=== PATIENT | female | born 1940 | race Caucasian/White ===

== ENCOUNTER 2019-12-18 12:42 | Emergency (ER) | payer MEDICARE ==
[~2019-12-18] VITALS: Ht 162.6 cm; Wt 99.8 kg
--- NOTE | 2019-12-18 14:02 | Emergency Department Note ---
History of Present Illnes History of Present Illness Chief Complaint: General Medicine Complaints History of Present Illness This is a 79 year old female who presents with the itching scalp for 2 weeks. Initially used rubbing alcohol which did not help. Has tried multiple [id number] dictations for lice with no improvement. She states that when she combed her hair with finetooth comb during lice treatment did not see any lice or nits. No similar problems in the past. States that the itching is limited to her scalp and does not have any itching over the rest of the body. Had elevated liver enzymes in past many years ago related to a medicaiton, but has regular lab checked by PCP and liver numbers have always been normal. Denies jaundice. No fever or chills. No nausea vomiting diarrhea. He lives with her daughter, who has had no symptoms. Historian: Patient Arrival Mode: Car Scallop Raker Required: No Onset (how long ago): week(s) Severity: severe Onset quality: gradual Progression: worsening Context: Denies recent illness, Denies trauma/injury Relieving factors: none Exacerbating factors: none Associated symptoms: Denies chest pain, Denies cough, Denies fever/chills, Denies nausea/vomiting Treatments prior to arrival: other (lice treatment) Past Medical/Family History Physician Review I have reviewed the patient's past medical and family history. Any updates have been documented here. Past Medical History Recent Fever: No Clinical Suspicion of Infectio: No New/Unexplained Change in Ment: No Past Medical History: Hypertension Other Medical History: PCP: Juan Chamberlain Past Surgical History: Appendectomy, Hysterectomy, Social History Smoking Cessation: Never Smoker Counseling Performed: No Alcohol Use: None Any Illegal Drug Use: No Other Any Pre-Existing Lines (PICC,: No Review of Systems Review of Systems Constitutional: Denies chills, Denies fever, Denies malaise EENTM: Reports no symptoms Cardiovascular: Denies palpitations, Denies syncope Respiratory: Denies cough, Denies pain with cough Gastrointestinal: Denies abdominal pain, Denies constipation, Denies diarrhea Genitourinary: Reports no symptoms Musculoskeletal: Reports no symptoms Integumentary: Reports as per HPI Neurological: Denies headache Psychological: Reports no symptoms Hematological/Lymphatic: Reports no symptoms Physical Exam Related Data Triage Vital Signs Vital Signs Date Time Temp Pulse Resp B/P (MAP) Pulse Ox O2 Delivery O2 Flow Rate FiO2 12/18/19 12:45 98.6 88 18 171/84 96 Physical Exam CONSTITUTIONAL Constitutional: Present well-developed, Present well-nourished HENT EYES Eyes: Reports PERRL, Reports conjunctivae normal NECK Neck: Present ROM normal PULMONARY Pulmonary: Present effort normal, Present breath sounds normal CARDIOVASCULAR Cardiovascular: Present regular rhythm, Present heart sounds normal, Present capillary refill normal, Present normal rate GASTROINTESTINAL Abdominal: Present soft, Present nontender, Present bowel sounds normal GENITOURINARY SKIN Skin: Present dry (scalp), Present erythema (mild. of scalp), Present other (scaly scalp); Absent jaundiced, Absent lesion MUSCULOSKELETAL Musculoskeletal: Present ROM normal, Present other (normal gait); Absent deformity NEUROLOGICAL Neurological: Present alert, Present oriented x 3 PSYCHOLOGICAL Psychological: Present mood/affect normal, Present thought content normal Exam - additional comments Blue light over scalp revealed no lice or nits. Assessment & Plan Medical Decision Making MDM Lice not suspected as no lice or nits observed by patient, me, [employer] professor. This includes patient using fine nit comb over wet hair. Furthermore, patient has had multiple treatments for lice with no improvement. Scalp dry and scaly which is likely result of multiple treatments and frequent washing. Will treat itching with antihistamine. Selsun Blue for dry scalp. Will followup with derm for recheck and possible further interventions. While patient has remote history of elevated LFT's do not suspect cholestasis given pruritus is limited to scalp and not global, no jaundice, and LFT's have recovered. Assessment & Plan Final Impression: (1) Hypertension (2) Xeroderma Depart Disposition: HOME, SELF-CARE Last Vital Signs Date Time Temp Pulse Resp B/P (MAP) Pulse Ox O2 Delivery O2 Flow Rate FiO2 12/18/19 12:45 98.6 88 18 171/84 96 JUSTIN MARKS MD Dec 18, 2019 14:02
== END 2019-12-18 13:58 | disposition home or self-care (01) ==
LOC: FSED 13:35
DX: Q80.9 Congenital ichthyosis, unspecified (principal); I10 Essential (primary) hypertension
CPT/HCPCS: 99282